=== PATIENT | female | born 1950 ===

== ENCOUNTER 2021-07-25 11:20 | Outpatient (REF) | payer MEDICARE, MEDICAID, SELFPAY ==
[2021-07-25 14:01] LABS: Alanine Aminotransferase 11 U/L (0-31); Albumin Level 3.7 g/dL (3.5-5.0); Alkaline Phosphatase 131 U/L (39-117); Anion Gap 14 (12-20); Aspartate Amino Transferase 13 U/L (5-31); Bilirubin Total 0.5 mg/dL (0.0-1.0); Blood Urea Nitrogen 9 mg/dL (9-16); Calcium 9.5 mg/dL (8.4-10.2); Carbon Dioxide 26 mmol/L (22-29); Chloride 106 mmol/L (96-108); Estimated Glomerular Filt Rate 57; Glucose Fasting 92 mg/dL (60-99); Potassium 3.6 mmol/L (3.3-5.1); Sodium 142 mmol/L (135-145); Total Protein 6.3 g/dL (6.5-8.0)
[2021-07-25 14:21] LABS: TSH reflex Free T4 1.24 uIU/mL (0.32-4.0)
[2021-07-26 21:31] LABS: Triiodothyronine T3 Free 2.2 pg/mL (2.3-4.2)
== END 2021-07-25 11:21 | disposition home or self-care (01) ==
LOC: HO.10HDL 11:20
PROVIDERS: Visit Provider Internal Medicine
DX: E78.00 Pure hypercholesterolemia, unspecified (principal); E89.0 Postprocedural hypothyroidism; G47.33 Obstructive sleep apnea (adult) (pediatric); I10 Essential (primary) hypertension; R53.83 Other fatigue
CPT/HCPCS: 36415; 80053; 84443; 84481

== ENCOUNTER → 2023-07-26 10:07 | Outpatient (REF) | payer MEDICARE, MEDICAID, SELFPAY ==
--- NOTE | 2023-07-26 13:00 | CA_ITS ---
Transthoracic Echocardiogram Patient (Last, First, Middle): Ambrosio Galindo, Gender: Female Date of : 1950 Age: 72 Procedure Date: 07/26/2023 Procedure Type: Transthoracic Echocardiogram Location: OP Height: 160.02 cm Weight: 99.79 kg BSA: 2.01 m2 Heart Rate: bpm BP: 130 / 60 mmHg Cafe Or Restaurant Manager: TO Referring MD: Wendi Dawkins MD Junior Electrical Engineer: Ming Martinez MD Symptoms: HTN , CHF Study Quality: Technically Difficult ECG Rhythm: Sinus Conclusions: - 1. Normal LV ejection fraction of 65-70% 2. Normal cardiac valvular Doppler 3. Normal RV systolic pressure 4. No gross pericardial effusion Findings Procedure Information The quality of the study was technically difficult. The study quality is limited by the patients inability to tolerate the test and patients body habitus. Left Ventricle Normal left ventricular size, thickness, and systolic function. The visually estimated ejection fraction is between 65-70%. Spectral Doppler is indicative of a normal filling pattern. There is mild septal asymmetric hypertrophy. Right Ventricle Normal right ventricular cavity size and systolic function. Atria The left atrium is normal in size. There is no evidence of interatrial shunt. The right atrium is normal in size. Aortic Valve The aortic valve was not well visualized. There is no aortic valve stenosis. There is no aortic valve regurgitation. Mitral Valve Likely normal mitral valve structure and function. There is trace mitral valve regurgitation. There is no mitral valve stenosis. Pulmonic Valve The pulmonic valve was not well visualized. Great Vessels All visible segments of the aorta are normal in size. The pulmonary artery was not well visualized. There is no dilatation of the ascending aorta. Venous The inferior vena cava is normal in size and collapses greater than 50% with inspiration. Pericardium/Pleural There is no evidence of pericardial effusion. Prior Study Comparison No prior study available for comparison. Measurements 2D Linear Measurements IVSd: 1.39 0.6-0.9/0.6-1.0 cm LVIDd: 3.82 3.9-5.3/4.2-5.9 cm LVIDd Index: 1.90 2.4-3.2/2.2-3.1 cm/m2 LVIDs: 2.39 2.0-3.6 cm LVPWd: 0.85 0.7-1.1 cm LA Diam: 2.90 2.7-3.8/3.0-4.0 cm LAIDs Index: 1.44 1.5-2.3 cm/m2 LV Mass: 172.90 67-162/88-224 g LV Mass Index: 86.02 43-95/49-115 g/m2 LVOT Diam: 1.90 3.0+(-)1.3 cm 2D Systolic Function EF 4C: 66.80 >55% Mitral Valve MV Pk E: 0.73 MV PK A: 0.62 MV Decel Time: 180.00 E/A: 1.20 E'Lateral: 9.36 E'Medial: 6.74 E/E' Med: 10.80 E/E' Lat: 7.80 PHT: 53.00 MVA PHT: 4.15 Decel Garland: 4.06 Aortic Valve AoV Pk Shubham: 1.45 AoV Mn Shubham: 0.99 AoV VTI: 0.29 AoV Pk Grad: 8.00 Aov Mn Grad: 4.00 MEENA Cont.VTI: 2.51 LVOT LVOT Pk Shubham: 1.10 LVOT Mn Shubham: 0.79 LVOT VTI: 0.26 LVOT Pk Grad: 5.00 LVOT Mn Grad: 3.00 LVOT Diam: 1.90 LVOT Area: 2.84 Diastolic Function MV Pk E: 0.73 MV Pk A: 0.62 E/A: 1.20 E'Medial: 6.74 E/E' Med: 10.80 E' Laterial: 9.36 E/E' Lat: 7.80 Right Ventricle TAPSE (mm): 20.70 TVS' Shubham: 10.90 Tricuspid Valve TR Pk Shubham: 2.14 TR Pk Grad: 18.00 RA Press: 3.00 RVSP: 21.00 Great Vessels Aorta Sinus of Valsalva: 2.99 2.0-3.5 cm Ao Asc: 2.90 2.1-3.4 cm Updated in Other Vendor System with Status of Final Ming Martinez MD electronically signed on 07/26/2023 4:09:49 PM with status of Final
== END ==
LOC: HO.CARD 10:07
PROVIDERS: PCP Internal Medicine; Visit Provider Internal Medicine
DX: Z13.89 Encounter for screening for other disorder (principal)
CPT/HCPCS: 93306

== ENCOUNTER → 2023-07-26 13:00 | Outpatient (BNV) | payer MEDICARE, MEDICAID, SELFPAY | PROVIDERS: PCP Internal Medicine; Visit Provider Internal Medicine Cardiovascular Disease | DX: I50.9 Heart failure, unspecified (principal); I10 Essential (primary) hypertension | CPT/HCPCS: 93306 ==

== ENCOUNTER 2023-07-26 14:16 | Emergency (ER) | payer MEDICARE, MEDICAID, SELFPAY ==
--- NOTE | ~2023-07-26 | XR_ITS ---
EXAMINATION: XR HIP, LEFT CLINICAL INFORMATION: Pain. COMPARISON: None available. TECHNIQUE: Two views of the left hip. FINDINGS: No fracture. Alignment is anatomic. Hip joint space is maintained. Soft tissues are unremarkable. XR/XR hip LT min 2V IMPRESSION: No significant abnormality identified.
[2023-07-26 14:19] VITALS: BP 143/99; PULSE 72; RESP 19; TEMP 36.6; O2SAT 99; BMI 39.0
--- OUTSIDE RECORDS SUMMARY | 2023-07-26 15:44 | XMS_ITS | Continuity of Care Document ---
Author Name Unknown Organization [facility] ter Address [address] [place] [phone] Care Team Providers Care Patent Prosecution Attorney Name Role Phone Wendi Dawkins MD Primary Care Physician Encounter [facility] Date(s): 04/19/22 - 04/19/[address] [phone]- Encounter Diagnosis Left hip pain(Final) - 04/19/22 Discharge Disposition: A-D/C Home Attending Physician: Yusra Langston MD Admitting Physician: Yusra Langston MD Referring Physician: Not on Staff, Referring MD Allergies, Adverse Reactions, Alerts Substance Reaction Severity Status Bactrim Active adalimumab Active Egg Allergy Active LARA inhibitors Active amLODIPine Active Otezla Active Medications atorvastatin 20 mg oral tablet 1 tablet = 20 mg, By Mouth, Daily, # 30 tablet, 0 Refills, Maintenance, Tablet Start Date: 03/20/19 Status: Ordered Benadryl 25 mg oral capsule 1 capsule = 25 mg, By Mouth, 3 times a day, PRN for itching, # 30 capsule, 0 Refills, Maintenance, Capsule Start Date: 11/21/11 Status: Ordered esomeprazole 20 mg oral enteric coated capsule 1 capsule = 20 mg, By Mouth, Daily, # 30 capsule, 0 Refills, Maintenance, 03/20/19 19:01:16 EDT, ECCapsule Start Date: 03/20/19 Status: Ordered fluvoxaMINE 100 mg oral capsule, extended release 1 capsule = 100 mg, By Mouth, Daily at bedtime, # 30 capsule, 0 Refills, Maintenance, 03/20/19 19:00:32 EDT, CR Capsule Start Date: 03/20/19 Status: Ordered ibuprofen 200 mg oral tablet 400 mg, 2, tablet, By Mouth, Every 4 hours, PRN, # 120 tablet, Refills 0, Tot. Refills 0, Maintenance, Pain , Mild, 04/19/22 18:00:00 EDT, Route to Pharmacy Electronically, [id number], Partial fill upon patient request if the prescription is f... Start Date: 04/19/22 Status: Ordered loratadine 10 mg oral tablet 10 mg, 1, tablet, By Mouth, Daily, # 30 tablet, Refills 0, Maintenance, 03/20/19 18:58:48 EDT Start Date: 03/20/19 Status: Ordered meclizine 12.5 mg oral tablet 1 tablet = 12.5 mg, By Mouth, 3 times a day, PRN for dizziness, # 30 tablet, 0 Refills, Maintenance, 03/20/19 19:00:58 EDT, Tablet Start Date: 03/20/19 Status: Ordered oxyCODONE 5 mg oral tablet 2.5 mg, 0.5, tablet, By Mouth, Every 6 hours, PRN, # 5 tablet, Refills 0, Tot. Refills 0, Acute 04/27/22 18:02:00 EDT, Pain , Severe, 04/19/22 18:01:00 EDT, Route to Pharmacy Electronically, [id number], Partial fill upon patient request if the... Start Date: 04/19/22 Stop Date: 04/27/22 Status: Ordered OxyCODONE IR Tablet 5 mg, Tablet, By Mouth, Once, STAT, 04/19/22 16:51:00 EDT, Stop date 04/19/22 16:51:00 EDT Start Date: 04/19/22 Stop Date: 04/19/22 Status: Completed SEROquel 25 mg oral tablet 25 mg, 1, tablet, By Mouth, Daily, # 30 tablet, Refills 0, Maintenance, 03/20/19 19:01:41 EDT Start Date: 03/20/19 Status: Ordered Singulair 10 mg oral tablet 10 mg, 1, tablet, By Mouth, Daily, Refills 0, Maintenance, 03/20/19 18:57:55 EDT Start Date: 03/20/19 Status: Ordered Symbicort 160mcg/4.5mcg Inhaler 2, puffs, Inhalation, 2 times a day, # 10.2 Gm, Refills 0, Maintenance, 03/20/19 18:59:49 EDT, Aerosol Start Date: 03/20/19 Status: Ordered Synthroid 0.088 mg oral tablet 1 tablet = 88 mcg, By Mouth, Daily, # 30 tablet, 0 Refills, Maintenance, 03/20/19 18:57:35 EDT, Tablet Start Date: 03/20/19 Status: Ordered Tylenol 325 mg oral tablet 650 mg, 2, tablet, By Mouth, Every 4 hours, PRN, # 120 tablet, Refills 0, Tot. Refills 0, Maintenance, Pain , Mild, 04/19/22 18:00:00 EDT, Route to Pharmacy Electronically, [id number], Partial fill upon patient request if the prescription is f... 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 [facility] NOTES Results Radiology Reports * Exam Date Time Procedure Performing Provider Status 04/19/22 3:55 PM XR Hip w/Pelvis 2-3 View Left Cecile Taveras; Auth (Verified) Notes: (XR Hip w/Pelvis 2-3 View Left) Reason For Exam: With Pain;Trauma RESULT: XR Hip w/Pelvis 2-3 View Left XR Hip w/Pelvis 2-3 View Left Hx of Present Illness: Patient reports stepping down a stair funny and twisting LLE. Now reports L hip pain radiating into lower back worsening since Saturday.; Reason: Trauma; With Pain; Clinical Question(s): Fracture COMPARISON: CT abdomen and pelvis 03/21/2019. FINDINGS: There is no fracture or dislocation. Mild bilateral sacroiliac degenerative change. No change from CT from 2019 IMPRESSION: Mild stable bilateral sacroiliac degenerative change. I have personally reviewed the images and I agree with this report. WSN: [id number] Ordering Physician: Nirmala Kauffman Dictated By: Casper Gaxiola MD Dictated Date/Time: 04/19/22 4:11 pm Reviewed By: Wei Ochoa MD Signed By: Wei Ochoa MD Signed Date/Time: 04/19/22 4:16 pm Transcribed By: YOANDY Transcribed Date/Time: 04/19/22 4:07 pm Vital Signs Most recent to oldest [Reference Range]: 1 2 3 Oxygen Saturation [94-100 %] 95 % (04/19/22 6:07 PM) 97 % (04/19/22 4:04 PM) 98 % (04/19/22 3:21 PM) Pulse Rate [55-90 bpm] 70 bpm (04/19/22 6:07 PM) 69 bpm (04/19/22 4:04 PM) 72 bpm (04/19/22 3:21 PM) Blood Pressure [90-138/55-84 mm Hg] 153/76mm Hg *H* (04/19/22 6:07 PM) 134/76mm Hg (04/19/22 4:04 PM) 146/78mm Hg *H* (04/19/22 3:21 PM) Respiratory Rate [16-30 br/min] 17 br/min (04/19/22 6:07 PM) 18 br/min (04/19/22 5:08 PM) 26 br/min (04/19/22 4:04 PM) Temperature [96.8-100.4 DegF] 98.4 DegF (04/19/22 6:07 PM) 98.0 DegF (04/19/22 4:04 PM) 98.1 DegF (04/19/22 3:21 PM) Mode of Delivery (Oxygen) Room air (04/19/22 6:07 PM) Room air (04/19/22 4:04 PM) Room air (04/19/22 3:21 PM) Blood pressure sites Arm, left (04/19/22 4:04 PM) Arm, right (04/19/22 3:21 PM) Temperature Route Oral (04/19/22 6:07 PM) Oral (04/19/22 4:04 PM) Oral (04/19/22 3:21 PM) Social History Social History Type Response Smoking Status Never smoker entered on: 10/20/17 Sex
--- NOTE | 2023-07-26 16:02 | ED_ITS ---
HPI - General Adult General Chief complaint: Extremity Injury, Lower Stated complaint: Hip pain Time Seen by Provider: 07/26/23 15:18 Source: patient Mode of arrival: ambulatory Limitations: no limitations History of Present Illness HPI narrative: 72 y o female presenting for evaluation of L hip pain x4 days after twisting it while ambulating. Patient reports pain has been worsening over the past few days, worse with ambulation and better with rest. States sometimes the pain will radiate to the LLE. Able to ambulate but with discomfort. No previous hip injuries. Denies numbness and tingling, overlying skin changes. Also denies fevers, chills, chest pain, shortness of breath, abdominal pain, nausea, vomiting and diarrhea.,urinary/bowel incontinence/ retetnion, saddle paresthesias. Related Data Previous Rx's Medication Instructions Recorded lidocaine 5 % topical patch 1 patch topical DAILY PRN pain #15 07/26/23 ea prednisone 20 mg tablet 40 mg (2 x 20 mg) PO DAILY 5 days 07/26/23 #10 tabs tramadol 50 mg tablet 25 mg (1/2 x 50 mg) PO BID PRN 07/26/23 pain 5 days #10 tabs Allergies Allergy/AdvReac Type Severity Reaction Status Date / Time No Known Allergies Allergy Verified 07/26/23 14:19 Review of Systems Review of Systems: Constitutional : No Weight loss, No Fever, No Chills, No Fatigue, No Malaise ENT/Mouth : No sore throat, No Rhinorrhea Eyes: No Eye Pain, No Swelling, No Redness Cardiovascular : No Chest Pain, No SOB, No Dyspnea on Exertion, No Orthopnea, No Edema, No Palpitations Respiratory : No Cough, No Sputum, No Wheezing Gastrointestinal : No Nausea, No Vomiting, No Diarrhea, No Constipation, No abdominal Pain, No Hematochezia, No Melena Genitourinary : No Dysuria, No Urinary Frequency, No Hematuria, Musculoskeletal : + joint pain, No Myalgias, No Joint Swelling Skin : No Skin Lesions, No rash Neuro : No Weakness, No Numbness, No Dizziness, No Headache Psych : No Anxiety/Panic, No Depression All other systems reviewed and are negative Yes all other systems are reviewed and are negative PMFSH Past Medical History Attestation statement: The following information was validated with the patient. Source: old records reviewed and nursing notes reviewed Social History Social History Advance Directives: No Advance Directives Information Provided: Yes Physical Exam ED Vital Signs: Vital Signs - 24 hr 07/26/23 14:19 07/26/23 16:28 Temperature 98 F 98.1 F Pulse Rate 72 72 Respiratory Rate 19 16 Blood Pressure 143/99 H 174/88 H Pulse Oximetry 99 98 Oxygen Delivery Method Room Air Room Air BMI result Body Mass Index 39.0 VSS Appearance: Alert.? Oriented X3.? No acute distress.? Head: Normocephalic, atraumatic, no step-offs or deformities Eyes: Pupils equal, round and reactive to light.? Neck: Normal inspection.? Neck supple.? CVS: Normal heart rate and rhythm.? Pulses normal.? Respiratory: No respiratory distress.? Breath sounds normal. Abdomen: Soft and nontender?? Skin: Skin warm and dry.? Normal skin color.? Normal skin turgor.? Extremities: No lower extremity edema.? No calf ttp. 5/5 strength to bilateral upper and lower extremities. Full ROM of all 4 extremities. +TPP to the L ASIS. 2+ popliteal, AT, PT pulses b/l, gross sensation in tact, cap refill <2s b/l Neuro: Oriented X 3.? No motor deficit.? No sensory deficit. CN 2-12 intact . No saddle paresthesias. Course Reevaluation(s) Reevaluation #1: X-ray of the hip with no significant abnormality. This was discussed with the patient who understands the reading. Patient tolerated tramadol well here with some improvement of pain. Patient will be discharged home with pain medications. Reviewed with the patient the warnings of narcotic use, the risks and benefits of this were discussed and the patient demonstrated understanding of this. Patient has been instructed to follow up with orthopedics if needed for continued pain, referral provided. Time: 16:15 Medications Administered Discontinued Medications Generic Name Dose Route Start Last Admin Trade Name Osei PRN Reason Stop Dose Admin Lidocaine 2 patch 07/26/23 16:06 07/26/23 16:32 Lidocaine 4 % Patch Adh..Patch TRANSDERMA 07/26/23 16:07 2 patch ONCE ONE Administration Protocol Tramadol HCl 50 mg 07/26/23 16:04 07/26/23 16:30 Tramadol Hcl 50 Mg Tablet PO 07/26/23 16:05 50 mg ONCE ONE Administration Medical Decision Making Medical Decision Making [facility] Narrative: 72 y o female presenting for evaluation of atraumatic L hip pain x4 days after twisting it while ambulating Physical exam benign. Likely musculoskeletal pain vs bursitis vs inflammatory arthritis vs spr ain/strain. Unlikely dislocation or fracture but will order imaging to r/o. No acute threat to limb, neurovascularly in tact. No signs of acute arterial or venous embolism. No signs of cord compression or cauda equina Plan - imaging Differential Diagnosis Differential Diagnoses: The differential diagnosis associated with the presenta tion includes Likely musculoskeletal pain vs bursitis vs inflammatory arthritis vs sprain/strain. Unlikely dislocation or fracture but will order imaging to r/o. No acute threat to limb, neurovascularly in tact. No signs of acute arterial or venous embolism. No signs of cord compression or cauda equina Admission/Observation Consideration of admission/observation: Escalation of care including admission/observation considered No indication Independent Interpretation I performed an independent interpretation of an: Plain X-Ray Radiology Impression Discussion of test interpretation with radiology: I have reviewed the radiologist's reading. External Record Review External record reviewed: Inpatient record and Outpatient record Discharge Plan Discharge Clinical Impression: Acute pain of left hip Patient Disposition: Home, Self-Care Instructions: Narcotic Safety (ED), Arthralgia (ED), Heat Pack Application (ED), Hip Pain (ED) Additional Instructions: Take your medications as prescribed. If you were prescribed antibiotics today, it is important that you take your medication to their entirety, do not skip any doses, do not finish them early. Follow-up with your primary care provider this week. Return to the emergency department with new or worsening symptoms. Such as fevers, chills, chest pain, shortness of breath, nausea, vomiting, dizziness, headache, vision changes, lethargy In case of emergency call 911 Follow-up with the orthopedic team A narcotic has been sent to your pharmacy please take this as prescribed. Do not take more than the prescribed dose. Narcotic medications can cause addiction. Please do not mix them with alcohol. Do not take them while driving or operating machinery. Do not take them with any other narcotics. Do not share them with friends or family. They can cause constipation. Take them only for severe pain. Prescriptions: New prednisone 20 mg tablet 40 mg PO DAILY 5 Days Qty: 10 0RF tramadol 50 mg tablet 25 mg PO BID PRN (Reason: pain) 5 Days Qty: 10 0RF Rx Instructions: partial fill upon request lidocaine 5 % adhesive patch,medicated 1 patch topical DAILY PRN (Reason: pain) Qty: 15 0RF Rx Instructions: leave on most painful area for up to 12 hrs Referrals: Wendi Dawkins MD [Primary Care Provider] - 2 days Interventions: ED Discharge Assessment Last Done: 07/26/23 16:45 Discharge Date/Time: 07/26/23 16:47
[2023-07-26 16:28] VITALS: BP 174/88; PULSE 72; RESP 16; TEMP 36.7; O2SAT 98
[2023-07-26] MEDS: traMADoL HCL 50 MG TABLET PO (16:30)
[2023-07-26] MEDS: Lidocaine 4 % Patch ADH..PATCH 2 PATCH TRANSDERMA (16:32)
== END 2023-07-26 16:47 | disposition home or self-care (01) ==
PROVIDERS: Emergency Provider Emergency Medicine Emergency Medical Services; PCP Internal Medicine
DX: M25.552 Pain in left hip (principal); R26.81 Unsteadiness on feet; M54.6 Pain in thoracic spine; Z79.899 Other long term (current) drug therapy
CPT/HCPCS: 73502; 93306; 99284

== ENCOUNTER 2025-09-09 08:21 | Outpatient (REF) | payer MEDICARE, MEDICAID, SELFPAY ==
--- NOTE | ~2025-09-09 | US_ITS ---
EXAMINATION: US COMPLETE ABDOMEN WITH LIVER ELASTOGRAPHY CLINICAL INFORMATION: Elevated alkaline COMPARISON: None available. TECHNIQUE: Real-time imaging of the abdominal viscera. Noninvasive ultrasound liver fibrosis assessment is performed using César ElastPQ point quantification shear wave elastography (pSWE) with a C5-2 MHz transducer. Multiple elastography samples are obtained. FINDINGS: Evaluation limited by body habitus PANCREAS: Question mild atrophy of the visualized pancreas.. No significant abnormality otherwise seen. Tail of the pancreas is obscured by bowel gas. ABDOMINAL AORTA: No aortic aneurysm is seen. Distal aorta is partially obscured. INFERIOR VENA CAVA: Visualized portions are normal. LIVER: The liver demonstrates normal size, contour. Mild increased echogenicity.. No focal lesion or intrahepatic biliary duct dilatation. The right lobe measures 14.7 cm in length. The left lobe measures 8.1 cm in length. Portal flow is hepatopedal Shear wave liver elastography median stiffness is 1.13 m/s (reference: normal median stiffness is 1.3 m/s or less). IQR/median stiffness to assess sampling precision is 0.13 (reference: good quality data set is IQR/median stiffness of 0.15 or less). GALLBLADDER: Status postcholecystectomy COMMON BILE DUCT: Normal in caliber measuring 0.4 cm in diameter. RIGHT KIDNEY: No hydronephrosis. No renal calculi or focal parenchymal lesions. The kidney measures 9.3 cm in maximum dimension. LEFT KIDNEY: No hydronephrosis. No renal calculi or focal parenchymal lesions. The kidney measures 9.7 cm in maximum dimension. SPLEEN: Unremarkable. The spleen measures 11.1 cm in maximum dimension. FREE FLUID: None seen. US/US abdomen comp w elastography IMPRESSION: 1. Mild increased parenchymal echogenicity more commonly seen with hepatic steatosis. 2. Liver elastography: Median stiffness measures 1.13 m/s *Liver Stiffness equal or less than 1.3 m/s: High probability of being normal. REFERENCE: Society of Radiologists in Ultrasound Liver Stiffness Thresholds (2020): LIVER STIFFNESS THRESHOLDS: *Liver Stiffness equal or less than 1.3 m/s: High probability of being normal. *Liver Stiffness less than 1.7 m/s: In the absence of other known clinical signs, rules out compensated advanced chronic liver disease. *Liver Stiffness 1.7-2.1 m/s: Suggestive of compensated advanced chronic liver disease but need further test for confirmation. *Liver Stiffness over 2.1 m/s: Rules in compensated advanced chronic liver disease. *Liver Stiffness over 2.4 m/s: Suggestive of clinically significant portal hypertension. QUALITY OF DATA SET: *IQR/Median value equal or less than 0.15 implies a quality data set. *IQR/Median value over 0.15 implies a poor quality data set. SIGNIFICANT CHANGE FROM PRIOR EXAM: Significant change if liver stiffness measurement is 10% or greater from prior exam. OTHER CONSIDERATIONS: The stage of liver fibrosis may be overestimated in the setting of acute hepatitis, liver inflammation, elevated liver function tests, hepatic vascular congestion, obstructive cholestasis, non-fasting state, and infiltrative diseases such as amyloidosis and lymphoma. In some patients with NAFLD, the liver stiffness thresholds for compensated advanced chronic liver disease may be lower. In causes other than viral hepatitis and NAFLD, liver stiffness thresholds are not well established. Electronically signed by: Joe Powell MD 09/10/2025 09:49 AM [facility]
--- OUTSIDE RECORDS SUMMARY | 2025-09-09 08:38 | XMS_ITS | Encounter Summary ---
Author Organization [facility] Address [address] [place] [address] Care Team Providers Care Rubber Tile Floor Layer Name Role Phone Community, Pcp Primary Care Provider Unavailabl e Encounter Details Date Type Department Care Team Description 12/19/2016 Release of Information Medical Records [address] [place] [id number] Abstract, Provider Social History Tobacco Use Types Packs/Day Years Used Date Smoking Tobacco: Never Assessed Sex Assigned at Date Recorded Not on file documented as of this encounter Plan of Treatment Not on file documented as of this encounter Visit Diagnoses Not on filedocumented in this encounter Care Teams Rubber Tile Floor Layer Relationship Specialty Start Date End Date Community, Pcp PCP - General Internal Medicine 11/06/16 documented as of this encounter
--- OUTSIDE RECORDS SUMMARY | 2025-09-09 08:38 | XMS_ITS | Clinical Summary ---
Author Organization [facility] Address [address] [place] [address] Care Team Providers Care Qa Consultant Name Role Phone Community, Pcp Primary Care Provider Unavailabl e Allergies Active Allergy Reactions Severity Noted Date Comments Hussein Inhibitors Cough 12/18/2016 Amlodipine Swelling/Edema 12/18/2016 Eggs Nausea and Vomiting 12/18/2016 Humira Swelling/Edema 12/25/2017 Apremilast Headaches 12/18/2016 Sulfa Drugs 12/25/2017 Medications Medication Sig Dispensed Refills Start Date End Date Status atorvastatin (LIPITOR) 20 MG tablet Take 20 mg by mouth daily. 0 Active losartan-hydrochlor othiazide (HYZAAR) 100-25 MG per tablet Take 1 tablet by mouth daily. 0 Active levothyroxine 100 MCG tablet Take 100 mcg by mouth daily. 0 Active omeprazole (PRILOSEC) 20 MG capsule Take 20 mg by mouth daily. 0 Active ibuprofen (ADVIL,MOTRIN) 600 MG tablet Take 600 mg by mouth every 6 hours as needed. 0 Active prednisoLONE acetate (PRED FORTE) 1 % ophthalmic suspension 1 Drop 4 times daily. 0 Active Meclizine HCl 12.5 MG Tab Take 12.5 mg by mouth 4 times daily as needed. 0 Active lorazepam (ATIVAN) 0.5 MG tablet Take 0.5 mg by mouth every 6 hours as needed. 0 Active Calcitriol 3 MCG/GM Ointment Apply topically. 0 Active fluvoxamine (LUVOX) 100 MG tablet Take 100 mg by mouth. 2 tabs QD 0 Active acitretin (SORIATANE) 25 MG capsule Take 1 Cap by mouth 2 times daily. 60 Cap 2 12/18/2016 Active Clobetasol Propionate 0.05 % Shampoo Apply 1 Squirt topically daily. 1 Bottle 6 07/08/2017 Active clobetasol (TEMOVATE) 0.05 % ointment Apply bid x 2 weeks 60 g 4 07/08/2017 Active escitalopram (LEXAPRO) 20 MG tablet Take 20 mg by mouth daily. 0 Active buPROPion (WELLBUTRIN SR) 100 MG 12 hr tablet Take 100 mg by mouth 2 times daily. 0 Active ALBUTEROL SULFATE 108 (90 Base) MCG/ACT Aero SolnIndications:Obs tructive chronic bronchitis without exacerbation (HCC) Inhale 2 Puffs into the lungs every 4 hours as needed for Cough or Wheezing for up to 30 days. 1 Inhaler 5 05/02/2020 Active Symbicort 160-4.5 MCG/ACT inhalerIndications: Obstructive chronic bronchitis without exacerbation (HCC) INHALE 2 PUFFS INTO THE LUNGS TWO TIMES A DAY 1 Inhaler 11 05/10/2021 Active levothyroxine (SYNTHROID, LEVOTHROID) 88 MCG tablet Take 1 Tablet by mouth daily. 0 Active fluticasone (Flonase) 50 MCG/ACT nasal sprayIndications:OS A (obstructive sleep apnea) 2 Sprays by Nasal route daily for 30 days. 1 g 0 03/29/2023 Active budesonide-formoter ol (Symbicort) 160-4.5 MCG/ACT inhalerIndications: GEN (obstructive sleep apnea) Inhale 2 Puffs into the lungs every 12 hours for 30 days. This medication has inhaler steroid: Rinse mouth with water and expectorate after each dose to prevent oral/esophageal candidiasis or fungal infection. 1 g 11 03/29/2023 Active albuterol (PROVENTIL) (2.5 MG/3ML) 0.083% nebulizer solutionIndications :Mild persistent asthma, unspecified whether complicated Take 1 Vial by nebulization every 4 hours as needed for Wheezing for up to 30 days. 180 mL 0 03/29/2023 Active montelukast (SINGULAIR) 10 MG tabletIndications:O bstructive chronic bronchitis without exacerbation (HCC) TAKE 1 TABLET BY MOUTH DAILY AT BEDTIME 30 Tablet 5 02/04/2024 Active montelukast (SINGULAIR) 10 MG tabletIndications:M ild persistent asthma, unspecified whether complicated Take 1 Tablet by mouth daily. 0 Active benzonatate (TESSALON) 100 MG capsuleIndications: Mild persistent asthma, unspecified whether complicated Take 1 Capsule by mouth 3 times daily as needed. 0 Active albuterol (PROVENTIL) (2.5 MG/3ML) 0.083% nebulizer solutionIndications :Mild persistent asthma, unspecified whether complicated Take 1 Vial by nebulization every 4 hours as needed for Wheezing for up to 30 days. 300 mL 2 07/13/2024 Active Active Problems Problem Noted Date GEN on CPAP 08/08/2018 COPD (chronic obstructive pulmonary dise ase) 08/07/2018 Psoriasis 12/25/2017 Hypothyroid 12/25/2017 Benign paroxysmal positional vertigo Overview: occassional Gastroesophageal reflux 12/25/2017 HTN (hypertension) 03/11/2017 Hypercholesteremia 03/11/2017 Obesity Resolved Problems Problem Noted Date Resolved Date History of edema 03/11/2017 12/25/2017 Overview: Ankle Immunizations Name Administration Dates Next Due COVID-19 (Moderna) 12/01/2021,11/03/2021 Zostavax 07/14/2016 Social History Tobacco Use Types Packs/Day Years Used Date Smoking Tobacco: Never Smokeless Tobacco: Never Alcohol Use Standard Drinks/Week Comments Never 0 (1 standard drink = 0.6 oz pur e alcohol) Sex Assigned at Date Recorded Not on file Last Filed Vital Signs Vital Sign Reading Time Taken Comments Blood Pressure 138/70 07/13/2024 10:45 AM EDT Pulse 97 07/13/2024 10:45 AM EDT Temperature 36.4 C (97.6 F) 07/13/2024 10:45 AM EDT Respiratory Rate 18 07/13/2024 10:45 AM EDT Oxygen Saturation 98% 03/29/2023 10:00 AM EDT Inhaled Oxygen Concentration - - Weight 106.1 kg (234 lb) 07/13/2024 10:45 AM EDT Height 160 cm (5' 3 ) 07/13/2024 10:45 AM EDT Body Mass Index 41.45 07/13/2024 10:45 AM EDT Plan of Treatment Health Maintenance Due Date Last Done Comments DEPRESSION SCREEN 1962 HEPATITIS C SCREENING 1968 DTAP/TDAP/TD (1 - Tdap) 1969 CHOLESTEROL SCREENING 1970 BONE DENSITY SCREENING 2015 FALL RISK ASSESSMENT 2015 PNEUMOCOCCAL VACCINE (1 - PCV) 2015 SHINGLES VACCINE (2 of 3) 09/08/2016 07/14/2016 MAMMOGRAM 07/04/2017 07/04/2016 (Exte rnal Completion), 06/27/2015 (External Completion) BMI CHECK/ADVISE 10/28/2024 07/13/2024, 11/2022, 10/20/2020, Additional history exists Covid-19 Vaccine (3 - 2022-2 4 season) 2025 12/01/2021, 11/03/2021 INFLUENZA (#1) 2025 Care Teams Qa Consultant Relationship Specialty Start Date End Date Community, Pcp PCP - General Internal Medicine 11/06/16
--- OUTSIDE RECORDS SUMMARY | 2025-09-09 08:38 | XMS_ITS | Encounter Summary ---
Author Organization [facility] Address [address] [place] [address] Care Team Providers Care Wash Oil Pump Operator Name Role Phone Community, Pcp Primary Care Provider Unavailabl e Encounter Details Date Type Department Care Team Description 12/21/2016 Transfer Records Medical Records [address] [place] [id number] Abstract, Provider Social History Tobacco Use Types Packs/Day Years Used Date Smoking Tobacco: Never Assessed Sex Assigned at Date Recorded Not on file documented as of this encounter Plan of Treatment Not on file documented as of this encounter Visit Diagnoses Not on filedocumented in this encounter Care Teams Wash Oil Pump Operator Relationship Specialty Start Date End Date Community, Pcp PCP - General Internal Medicine 11/06/16 documented as of this encounter
--- OUTSIDE RECORDS SUMMARY | 2025-09-09 08:39 | XMS_ITS | Clinical Summary ---
Author Organization [facility] Address [address] [place] [address] Phone Care Team Providers Care Multicultural Services Librarian Name Role Phone Physician, No Pcp Primary Care Provider Unavaila ble Allergies Active Allergy Reactions Criticality Noted Date Comments Hussein Inhibitors Cough 12/18/2016 Adalimumab Swelling 12/25/2017 Amlodipine Swelling 12/18/2016 Apremilast Headache 12/18/2016 Egg Nausea And Vomiting 12/18/2016 Sulfa (Sulfonamide Antibiotics) 11/29 Medications acitretin (SORIATANE) 25 mg capsule Take 1 Cap by mouth 2 times daily. 7 Active atorvastatin (LIPITOR) 20 mg tablet Take 20 mg by mouth daily. Active benzonatate (TESSALON) 100 mg capsule Take 1 Capsule by mouth 3 times daily as needed. Active buPROPion SR (WELLBUTRIN SR) 100 mg 12 hr tablet Take 100 mg by mouth 2 times daily. Active calcitrioL 3 mcg/gram cream Apply topically. Active clobetasoL (TEMOVATE) 0.05 % ointment Apply bid x 2 weeks 7 Active clobetasoL 0.05 % shampoo Apply 1 Squirt topically daily. 7 Active escitalopram (LEXAPRO) 20 mg tablet Take 20 mg by mouth daily. Active fluvoxaMINE (LUVOX) 100 mg tablet Take 100 mg by mouth. 2 tabs QD Active ibuprofen (ADVIL,MOTRIN) 600 mg tablet Take 1 tablet (600 mg total) by mouth every 6 (six) hours if needed. Active levothyroxine (SYNTHROID, LEVOTHROID) 88 mcg tablet Take 1 tablet (88 mcg total) by mouth 1 (one) time each day. Active levothyroxine (SYNTHROID, LEVOTHROID) 100 mcg tablet Take 100 mcg by mouth daily. Active LORazepam (ATIVAN) 0.5 mg tablet Take 0.5 mg by mouth every 6 hours as needed. Active losartan-hydroC HLOROthiazide (HYZAAR) 100-25 mg per tablet Take 1 tablet by mouth 1 (one) time each day. Active meclizine (ANTIVERT) 12.5 mg tablet Take 12.5 mg by mouth 4 times daily as needed. Active omeprazole (PriLOSEC) [address] capsule Take 20 mg by mouth daily. Active prednisoLONE acetate (PRED FORTE) 1 % ophthalmic suspension 1 Drop 4 times daily. Active budesonide-form oteroL (SYMBICORT) 160-4.5 mcg/actuation inhaler Inhale 2 puffs by mouth 2 (two) times a day. Rinse mouth with water after use to reduce aftertaste and incidence of candidiasis. Do not swallow. Active montelukast (SINGULAIR) 10 mg tablet TAKE 1 TABLET BY MOUTH DAILY AT BEDTIME. 30 tablet 11 5 Active guselkumab (Tremfya) 100 mg/mL injection Inject 1 mL (100 mg total) under the skin once every eight weeks. Active Active Problems Problem Noted Date Diagnosed Date Obesity 10/05/2024 GEN on CPAP 08/08/2018 COPD (chronic obstructive pu lmonary disease) ([facility] V24, [facility] V28) 08/07/2018 Benign paroxysmal positional vertigo 12/25/2017 Overview (10/05/2024): occassional Gastroesophageal reflux 12/25/2017 Hypothyroid 12/25/2017 Psoriasis 12/25/2017 HTN (hypertension) 03/11/2017 Hypercholesteremia 03/11/2017 Immunizations Immunization Administration Dates Next Due Moderna SARS-CoV-2 COVID-19, mRNA, LNP-S, preservative free 12/01/2021,11/03/2021 Zoster Live 07/14/2016 Medical History Medical History Date Comments Hypertension DX:Hypertension Hypercholesterolemia DX:Hypercho lesterolemia Obesity DX:Obesity Psoriasis 12/25/2017 DX:Psoriasis Hypothyroid 12/25/2017 DX:Hypothyroid Benign paroxysmal positional vertigo 12/25/2017 DX:Benign paroxysmal positional vertigo Gastroesophageal reflux 12/25/2017 DX:Gastr oesophageal reflux Social History Tobacco Use Types Packs/Day Years Used Date Smoking Tobacco: Never Smokeless Tobacco: Never Tobacco Cessation:Counseling Given: Not Answered Alcohol Use Standard Drinks/Week Comments Never 0 (1 standard drink = 0.6 oz pur e alcohol) Comments Unknown Sex and Gender Information Value Date Recorded Sex Assigned at Not on file Legal Sex Female 7:52 AM EST Gender Identity Not on file Sexual Orientation Not on file Obstetrics History Last Filed Vital Signs Vital Sign Reading Time Taken Comments Blood Pressure 124/60 01/11/2025 9:47 AM EDT Pulse 77 01/11/2025 9:47 AM EDT Temperature 36.8 C (98.2 F) 01/11/2025 9:47 AM EDT Respiratory Rate 18 01/11/2025 9:47 AM EDT Oxygen Saturation 95% 01/11/2025 9:47 AM EDT Inhaled Oxygen Concentration - - Weight 104 kg (230 lb) 01/11/2025 9:47 AM EDT Height 160 cm (5' 3 ) 01/11/2025 9:47 AM EDT Body Mass Index 40.74 01/11/2025 9:47 AM EDT Plan of Treatment Upcoming Encounters Date Type Department Care Team (Late st Contact Info) Description 01/11/2026 10:30 AM EDT Office Visit Pulmonology - [address] [place] [phone] Guy Wallace MD [address] [place] [phone] Health Maintenance Due Date Last Done Comments Cholesterol Screening (Lipid Panel) 09/30/2022 Falls Risk Assessment 09/30/2022 Hepatitis C Screening 09/30/2022 Medicare Annual Wellness Visit 09/30/2022 Osteoporosis Screening (Bone Density Screening) 09/30/2022 Social Influencers of Health Screening 09/30/2022 Hypertension/CHF/CAD Annual BMP Blood Test 10/13/2022 Colorectal Cancer Screening: Colonoscopy 10/25/2024 10/25/2014 Depression Screening 10/28/2024 COVID-19 Vaccine ( season) 2025 02/13/2022, 12/01/2021, 11/03/2021 Influenza Vaccine (#1) 2025 4, 10/28/2021, 08/11/2021, Additional history exists DTaP,Tdap,and Td Vaccines (2 - Td or Tdap) 07/21/2029 07/21/2019 Pneumococcal Vaccine: 50+ Years Completed 07/21/2019, 12/28/2015 Zoster Vaccines Completed 10/23/2019, 06/28, 07/14/2016 RSV Immunization Adult Patients Completed 01/16/2024 HIB Vaccines Aged Out No longer eligi ble based on patient's age to complete this topic HPV Vaccines Aged Out No longer eligi ble based on patient's age to complete this topic Hepatitis A Vaccines Aged Out No long er eligible based on patient's age to complete this topic Hepatitis B Vaccines Aged Out No long er eligible based on patient's age to complete this topic IPV Vaccines Aged Out No longer eligi ble based on patient's age to complete this topic MMR Vaccines Aged Out No longer eligi ble based on patient's age to complete this topic Meningococcal ACWY Vaccine Aged Out N o longer eligible based on patient's age to complete this topic Meningococcal B Vaccine Aged Out No l onger eligible based on patient's age to complete this topic RSV Immunization Patients Under 20 months Aged Out No longer eligible based on patient's age to complete this topic Varicella Vaccines Aged Out No longer eligible based on patient's age to complete this topic Procedures Procedure Name Priority Date/Time Associated Diagnosis Comments EXTERNAL COLONOSCOPY REPORT Routine 10/25/2014 10:02 AM EST from Last 3 Months or Most Recently Relevant to Health Maintenance Results * External Colonoscopy Report (10/25/2014 10:02 AM EST) Anatomical Region Laterality Modality Endoscopy us Historical Provider GI~PROCEDURE ORDERABLES F inal Result from Last 3 Months or Most Recently Relevant to Health Maintenance Insurance MEDICARE MEDICAID - [place] Care Teams Multicultural Services Librarian Relationship Specialty Start Date End Date Physician, No Pcp PCP - General 01/04/25
--- OUTSIDE RECORDS SUMMARY | 2025-09-09 08:39 | XMS_ITS | Encounter Summary ---
Author Organization [facility] Address [address] [place] [address] Care Team Providers Care Medical Observer Name Role Phone Community, Pcp Primary Care Provider Unavailabl e Reason for Visit * Reason Comments E-prescribe Rx Request Encounter Details Date Type Department Care Team Description 05/02/2021 Refill Pulmonology - [place] [address] [facility] [address] [place] [phone] Guy Wallace MD [address] [place] [phone] E-prescribe Rx Request Social History Tobacco Use Types Packs/Day Years Used Date Smoking Tobacco: Never Smokeless Tobacco: Never Sex Assigned at Date Recorded Not on file documented as of this encounter Miscellaneous Notes * Telephone Encounter - Esperanza Ahumada - 05/10/2021 11:03 AM EDT Pharmacy called to follow up on this refill. Told pharmacy the patient would have to be contacted for a future appointment. [place] 10/20/2020 Left message for patient to schedule an appointment with Dr Wallace documented in this encounter Plan of Treatment Not on file documented as of this encounter Visit Diagnoses Diagnosis Obstructive chronic bronchitis without exacerbation (HCC) Obstructive chronic bronchitis without exacerbation documented in this encounter Care Teams Medical Observer Relationship Specialty Start Date End Date Community, Pcp PCP - General Internal Medicine 11/06/16 documented as of this encounter
--- OUTSIDE RECORDS SUMMARY | 2025-09-09 08:39 | XMS_ITS | Encounter Summary ---
Author Organization [facility] Address [address] [place] [address] Care Team Providers Care Steward/Stewardess Name Role Phone Community, Pcp Primary Care Provider Unavailabl e Reason for Visit * Reason Comments E-prescribe Rx Request Encounter Details Date Type Department Care Team Description 03/16/2023 Refill Pulmonology - [place] [address] [facility] [address] [place] [phone] Guy Wallace MD [address] [place] [phone] E-prescribe Rx Request Social History Tobacco Use Types Packs/Day Years Used Date Smoking Tobacco: Never Smokeless Tobacco: Never Sex Assigned at Date Recorded Not on file documented as of this encounter Miscellaneous Notes * Telephone Encounter - Marjorie Herrera - 03/18/2023 8:47 AM EDT SUMMER:10/20/20 NOV:03/29/23 documented in this encounter Plan of Treatment Not on file documented as of this encounter Visit Diagnoses Diagnosis Obstructive chronic bronchitis without exacerbation (HCC) Obstructive chronic bronchitis without exacerbation documented in this encounter Care Teams Steward/Stewardess Relationship Specialty Start Date End Date [facility], Pcp PCP - General Internal Medicine 11/06/16 documented as of this encounter
--- OUTSIDE RECORDS SUMMARY | 2025-09-09 08:39 | XMS_ITS | Encounter Summary ---
Author Organization [facility] Address [address] [place] [address] Care Team Providers Care Closing Machine Operator Name Role Phone Community, Pcp Primary Care Provider Unavailabl e Reason for Visit * Reason Onset Date Comments Call From Pharmacy 05/24/2020 [facility] refill request 05/24/2020 Encounter Details Date Type Department Care Team Description 05/24/2020 Refill Pulmonology - [place] [address] [facility] [address] [place] [phone] Guy Wallace MD [address] [place] [phone] Call From Pharmacy ([facility]); refill request Social History Tobacco Use Types Packs/Day Years Used Date Smoking Tobacco: Never Smokeless Tobacco: Never Sex Assigned at Date Recorded Not on file documented as of this encounter Miscellaneous Notes * Telephone Encounter - Melissa River - 05/24/2020 1:10 PM EDT Pharmacy states please send ICD10 code with script. [place] 04/21/2020 NOV 10/20/2020 30 day supply. documented in this encounter Plan of Treatment Not on file documented as of this encounter Visit Diagnoses Not on filedocumented in this encounter Care Teams Closing Machine Operator Relationship Specialty Start Date End Date Community, Pcp PCP - General Internal Medicine 11/06/16 documented as of this encounter
--- OUTSIDE RECORDS SUMMARY | 2025-09-09 08:39 | XMS_ITS | Encounter Summary ---
Author Organization [facility] Address [address] [place] [address] Care Team Providers Care Reverse Engineer Name Role Phone Community, Pcp Primary Care Provider Unavailabl e Encounter Details Date Type Department Care Team Description 04/17/2019 Refill Pulmonology [address] [place] [phone] Alejandro Anand MD Social History Tobacco Use Types Packs/Day Years Used Date Smoking Tobacco: Never Smokeless Tobacco: Never Sex Assigned at Date Recorded Not on file documented as of this encounter Plan of Treatment Not on file documented as of this encounter Visit Diagnoses Diagnosis Obstructive chronic bronchitis without exacerbation (HCC)- Primary Obstructive chronic bronchitis without exacerbation documented in this encounter Care Teams Reverse Engineer Relationship Specialty Start Date End Date Community, Pcp PCP - General Internal Medicine 11/06/16 documented as of this encounter
--- OUTSIDE RECORDS SUMMARY | 2025-09-09 08:39 | XMS_ITS | Encounter Summary ---
Author Organization [facility] Address [address] [place] [address] Care Team Providers Care Supervisor Properties Name Role Phone Community, Pcp Primary Care Provider Unavailabl e Reason for Visit * Reason Comments E-prescribe Rx Request Encounter Details Date Type Department Care Team Description 05/07/2021 Refill Pulmonology - [place] [address] [facility] [address] [place] [phone] Guy Wallace MD [address] [place] [phone] E-prescribe Rx Request Social History Tobacco Use Types Packs/Day Years Used Date Smoking Tobacco: Never Smokeless Tobacco: Never Sex Assigned at Date Recorded Not on file documented as of this encounter Miscellaneous Notes * Telephone Encounter - Esperanza Ahumada - 05/10/2021 11:07 AM EDT Pharmacy called to follow up [...] exacerbation documented in this encounter Care Teams Supervisor Properties Relationship Specialty Start Date End Date Community, Pcp PCP - General Internal Medicine 11/06/16 documented as of this encounter
== END 2025-09-09 08:22 | disposition home or self-care (01) ==
LOC: HO.US 08:21
PROVIDERS: PCP Internal Medicine; Visit Provider Internal Medicine
DX: R74.8 Abnormal levels of other serum enzymes (principal)
CPT/HCPCS: 76700; 76981

== ENCOUNTER → 2025-09-09 08:24 | Outpatient (BNV) | payer MEDICARE, MEDICAID, SELFPAY | PROVIDERS: PCP Internal Medicine; Visit Provider Radiology Diagnostic Ultrasound | DX: R74.8 Abnormal levels of other serum enzymes (principal) | CPT/HCPCS: 76700 ==